=== PATIENT | female | born 1955 | race Caucasian/White ===

== ENCOUNTER → 2020-08-06 | Outpatient (CLI) | payer OTHER ==
[~2020-08-06] MED LIST: ASPI81CH PO; Flomax0.4 MG PO; KETO10 PO; NATURAL LUTEIN20 MG PO; Norco 5-325 Ta1 EACH PO; TIMO.5OPS BOTHEYES; Zofran4 MG PO
[2020-08-10 09:10] LABS: HPV 16 Negative (Negative); HPV 18 Negative (Negative); HPV OTHER HR TYPES Negative (Negative)
== END | disposition home or self-care (01) ==
LOC: LAB 18:19
PROVIDERS: Nurse Practitioner Family
DX: Z12.4 Encounter for screening for malignant neoplasm of cervix (principal)
CPT/HCPCS: 87624; G0123